=== PATIENT | male | born 2000 | race Caucasian/White ===

== ENCOUNTER 2024-04-22 15:11 | Inpatient (IN) | payer BC ==
[2024-04-22 15:33] VITALS: BMI 20.3
[2024-04-22] MEDS ORDERED: MAGNESIUM HYDROX 2400MG/30ML ORAL SUSPENSION 30 ML CUP PO PRN (16:08)
[2024-04-22] MEDS ORDERED: POLYETHYLENE GLYCOL (HEALTHYLAX) 3350 17 GM PACKET PO PRN (16:08)
[2024-04-22] MEDS ORDERED: ONDANSETRON *ODT* 4 MG TABLET SL PRN (16:08)
[2024-04-22] MEDS ORDERED: BENZONATATE 200 MG CAPSULE PO PRN (16:08)
[2024-04-22] MEDS ORDERED: IBUPROFEN 400 MG TABLET (FP) PO PRN (16:08)
[2024-04-22] MEDS ORDERED: NALOXONE HCL 0.4 MG/ML VIAL IM PRN (16:08)
[2024-04-22] MEDS ORDERED: MAG HYDROX/AL HYDROX/SIMETH 30 ML UNIT-DOSE CUP PO PRN (16:08)
[2024-04-22] MEDS ORDERED: guaiFENesin 600 MG TABLET.ER (FP) PO PRN (16:08)
[2024-04-22] MEDS ORDERED: METHOCARBAMOL 500 MG TABLET PO PRN (16:08)
[2024-04-22] MEDS ORDERED: LOPERAMIDE HCL 2 MG CAPSULE PO PRN (16:08)
[2024-04-22] MEDS ORDERED: NALOXONE (NARCAN) HCL 4 MG/0.1 ML SPRAY NS PRN (16:08)
[2024-04-22] MEDS ORDERED: DICYCLOMINE HCL 10 MG CAPSULE PO PRN (16:08)
[2024-04-22] MEDS ORDERED: BISMUTH SUBSALICYLATE 524 MG/30 ML PO PRN (16:08)
[2024-04-22] MEDS ORDERED: BENZOCAINE/MENTHOL (CHLORASEPTIC ) LOZENGE MM PRN (16:08)
[2024-04-22] MEDS ORDERED: ACETAMINOPHEN 325 MG TABLET (FP) PO PRN (16:08)
[2024-04-22] MEDS ORDERED: IBUPROFEN 600 MG TABLET (FP) PO PRN (16:08)
[2024-04-22] MEDS: PRENATAL VITAMINS W/ FOLIC ACID TABLET (FP) PO SCH (16:30)
[2024-04-22] MEDS: NICOTINE 14 MG/24 HOURS TOPICAL PATCH TD SCH (16:30)
[2024-04-22] MEDS: THIAMINE 100 MG TABLET PO SCH (22:20)
[2024-04-22] MEDS: hydrOXYzine PAMOATE 25 MG CAPSULE (FP) PO PRN (22:20)
[2024-04-22] MEDS: MELATONIN 5 MG TABLETS PO SCH (22:20)
[2024-04-23] MEDS: methaDONE HCL 10 MG TABLET PO SCH (09:43)
[2024-04-23 11:44] LABS: HEMATOCRIT 41.7 % (35.4-49); HEMOGLOBIN 14.1 GM/dL (11.7-16.9); MCH 29.4 pg (25.7-33.7); MCHC 33.7 g/dl (32.0-35.9); MEAN CELL VOLUME 87.3 fl (80-96); MEAN PLT VOLUME 10.2 fl (7.5-11.1); PLATELET COUNT 173 10^3/uL (134-434); RBC 4.78 M/mm3 (4.00-5.60); RDW 14.4 % (11.9-15.9); WHITE BLOOD COUNT 6.8 K/mm3 (4.0-10.0)
[2024-04-23 11:50] LABS: CHLORIDE 109 mmol/L (98-107); POTASSIUM 3.8 mmol/L (3.5-5.1); SODIUM 142 mmol/L (136-145)
[2024-04-23 11:58] LABS: ANION GAP 5 mmol/L (4-13); BLOOD UREA NITROGEN 6.2 mg/dL (7-18); CO2 28 mmol/L (21-32); CREATININE 0.9 mg/dL (0.55-1.3); GLUCOSE,RANDOM 79 mg/dL (74-106); SGPT/ALT 28 U/L (13-61)
[2024-04-23 11:59] LABS: CALCIUM 9.7 mg/dL (8.5-10.1)
[2024-04-23 12:00] LABS: TOT PROT 6.8 g/dl (6.4-8.2)
[2024-04-23 12:01] LABS: ALK PHOS 82 U/L (45-117); SGOT/AST 30 U/L (15-37)
[2024-04-24] MEDS: methaDONE HCL 40 MG DISPERSABLE TABLET PO SCH (08:45)
[2024-04-24] MEDS: methaDONE HCL 10 MG TABLET PO ONE (09:44)
[2024-04-24 16:52] VITALS: PULSE 71; RESP 20
[2024-04-24 20:51] VITALS: BP 136/87; TEMP 98.2
[2024-04-25] MEDS ORDERED: methaDONE HCL 10 MG TABLET PO SCH (06:00)
[2024-04-26] MEDS ORDERED: methaDONE HCL 10 MG TABLET PO SCH ×2 (06:00)
[2024-04-27] MEDS ORDERED: methaDONE HCL 10 MG TABLET PO SCH (06:00)
[2024-04-28] MEDS ORDERED: methaDONE HCL 40 MG DISPERSABLE TABLET PO SCH (06:00)
== END 2024-04-24 20:34 | disposition left against medical advice (07) | DRG 770 ==
LOC: YASAS 15:11 → Y3N 17:01
PROVIDERS: ADMIT Allergy & Immunology; ATTEND Surgery
PROC: HZ2ZZZZ Detoxification Services for Substance Abuse Treatment (ICD-10-PCS; principal; 2024-04-22)
DX: F11.23 Opioid dependence with withdrawal (principal); F12.20 Cannabis dependence, uncomplicated; F17.210 Nicotine dependence, cigarettes, uncomplicated; F32.9 Major depressive disorder, single episode, unspecified; F41.9 Anxiety disorder, unspecified; G47.00 Insomnia, unspecified; Z86.59 Personal history of other mental and behavioral disorders; Z56.0 Unemployment, unspecified
CPT/HCPCS: 36415; 80053; 80305; 80307; 85027; 86780; 93005; 93010